=== PATIENT | male | born 1970 | race Caucasian/White ===

== ENCOUNTER 2019-02-26 06:49 | Inpatient (IN) | payer OTHER ==
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
[~2019-02-26 06:49] MED LIST: Acetaminophen TAB* 325 MG PO ONE; Buffered Lidocaine 1% SYRIN* 1 ML/SYRINGE INTRADERM ONE; Dexamethasone TAB* 4 MG PO ONE; DiMENhydriNATE IV* 50 MG/ML VIAL IV PUSH PRN; Famotidine IV* 10 MG/ML 2 ML (20 mg) IV ONE; Gabapentin CAP(*) 400 MG PO ONE; Lactated Ringers 1000 ML Bag* 1,000 ML IV SCH; Naloxone* 0.4 MG/ML 1 ML VIAL IV PRN; Ondansetron ODT TAB* 4 MG PO ONE; PROCHLORPERAZINE INJ 5 MG/ML 2 ML VIAL IV PRN; Tranexamic Acid 1,000 MG in NS 0.9% 50 ML* (outpatient use) IV SCH; celeCOXIB CAP* 100 MG PO ONE; oxyCODONE TAB* 5 MG TAB PO PRN
--- OUTSIDE RECORDS SUMMARY | 2019-02-26 06:52 | XMS REPORT | Continuity of Care Document ---
:1970 External Reference #:[id number] Author Name Tamra Jiménez M.D. (transmitted by agent of provider Giorgi Young) Address [address] [place] [address] Care Team Providers Name Role Phone Tamra Jiménez MD - Adult Care Team Information [employer] Cr[employer] Operator [phone] Reconstructive Orthopaedic Surgery Problems Active Problems Provider Date Localized, primary osteoarthritis Tamra Jiménez M.D. Onset: 05/02/2016 Social History Type Date Description Comments Sex Unknown ETOH Use Rarely consumes alcohol Tobacco Use Start: Unknown Patient is a current smoker, smokes some days Smoking Status Reviewed: 02/18/19 Patient is a current smoker, smokes some days Allergies, Adverse Reactions, Alerts Description No Known Drug Allergies Medications Active Medications SIG Qnty Indications Ordering Provider Date Ra Lidocaine Pain use on knee prn 60units M17.11 Tamra Jiménez, 02/18/2019 Relieving Patches up to 3 times M.D. Maximum Strength daily 4% Patches Oxycodone-Acetaminoph 1 tablet 4 times Unknown en daily 10-325mg Tablets Immunizations Description No Information Available Vital Signs Date Vital Result Comment 02/18/2019 11:41am Height 69 inches 5'9" Weight 142.00 lb Heart Rate 83 /min BP Systolic 122 mmHg BP Diastolic 82 mmHg Body Temperature 97.5 F Pain Level 8 BMI (Body Mass Index) 21.0 kg/m2 02/10/2019 9:14am Height 69 inches 5'9" Weight 146.00 lb Heart Rate 72 /min BP Systolic Sitting 124 mmHg BP Diastolic Sitting 82 mmHg Body Temperature 98.1 F O2 % BldC Oximetry 95 % BMI (Body Mass Index) 21.6 kg/m2 Results Test Acquired Date Facility Test Result H/L Range Note Urinalysis Profile 02/18/2019 [facility] Urine Color Yellow [address] [place] [address] [phone] Urine Appearance Clear Urine Specific [place] 1.028 Normal 1.010-1.030 Urine pH 5.0 Normal 5-9 Urine Urobilinogen Negative Negative Urine Ketones Negative Negative Urine Protein Negative Negative Urine Leukocytes Negative Negative Urine Blood 1+ Abnormal Negative Urine Nitrite Negative Negative Urine Bilirubin Negative Negative Urine Glucose Negative Negative Urine White Blood Cell Absent Absent Urine Red Blood Cell 1+(3-5/hpf) Abnormal Absent Urine Bacteria Absent Absent Urine Squamous Epithelial Cell Present Abnormal Absent CBC Auto 02/18/2019 [facility] White Blood 10.4 10^3/uL Normal 3.5-10.[address] [place] [address] [phone] Red Blood Count 4.54 10^6/uL Normal 4.18-5.48 Hemoglobin 14.6 g/dL Normal 14.0-18.0 Hematocrit 43 % Normal 42-52 Mean Corpuscular Volume 94 fL Normal 80-94 Mean Corpuscular Hemoglobin 32 pg High 27-31 Mean Corpuscular HGB Conc 34 g/dL Normal 31-36 Red Cell Distribution Width 13 % Normal 10-15 Platelet Count 434 10^3/uL Normal 150-450 Mean Platelet Volume 6.9 fL Low 7.4-10.4 Abs Neutrophils 6.3 10^3/uL Normal 1.5-7.7 Abs Lymphocytes 3.2 10^3/uL Normal 1.0-4.8 Abs Monocytes 0.8 10^3/uL Normal 0-0.8 Abs Eosinophils 0.1 10^3/uL Normal 0-0.6 Abs Basophils 0.0 10^3/uL Normal 0-0.2 Abs Nucleated RBC 0.0 10^3/uL Granulocyte % 60.8 % Lymphocyte % 30.8 % Monocyte % 7.3 % Eosinophil % 0.6 % Basophil % 0.5 % Nucleated Red Blood Cells % 0.0 Inr/Protime 02/18/2019 [facility] Inr 0.91 Normal 0.82-1.09 1 [address] [place] [address] [phone] Laboratory test 02/18/2019 [facility] Partial 31.7 Normal 26.0 -38.[address] [place] [address] Time PTT [phone] Comp Metabolic 02/18/2019 [facility] Sodium 135 mmol/L Normal 135-[address] [place], [place] [id number] [phone] Potassium 4.3 mmol/L Normal 3.5-5.0 Chloride 101 mmol/L Normal 101-111 Co2 Carbon Dioxide 25 mmol/L Normal 22-32 Anion Gap 9 mmol/L Normal 2-11 Glucose 105 mg/dL High 70-100 Blood Urea Nitrogen 21 mg/dL Normal 6-24 Creatinine 0.89 mg/dL Normal 0.67-1.17 BUN/Creatinine Ratio 23.6 High 8-20 Calcium 10.2 mg/dL Normal 8.6-10.3 Total Protein 7.1 g/dL Normal 6.4-8.9 Albumin 4.7 g/dL Normal 3.2-5.2 Globulin 2.4 g/dL Normal 2-4 Albumin/Globulin Ratio 2.0 Normal 1-3 Total Bilirubin 0.50 mg/dL Normal 0.2-1.0 Alkaline Phosphatase 78 U/L Normal 34-104 Alt 15 U/L Normal 7-52 Ast 13 U/L Normal 13-39 Egfr Non- 90.5 >60 Egfr 109.5 >60 2 Type & Screen 02/18/2019 [facility] Patient Blood Type O Positive [address] [place] [address] [phone] Antibody Screen NEGATIVE Urine Culture And 02/18/2019 [facility] Urine Culture SEE RESULT [address] [place] [address] [phone] 1 Standard intensity warfarin therapeutic range: 2.0-3.0 High intensity warfarin therapeutic range: 2.5-3.5 2 Because ethnic data is not always readily available, this report includes an eGFR for both -Americans and non- Americans. The National Kidney Disease Education Program (NKDEP) does not endorse the use of the MDRD equation for patients that are not between the ages of 18 and 70, are , have extremes of body size, muscle mass, or nutritional status, or are non- or non-. According to the National Kidney Foundation, irrespective of diagnosis, the stage of the disease is based on the level of kidney function: Stage Description GFR(mL/min/1.73 m(2)) 1 Kidney damage with normal or decreased GFR 90 2 Kidney damage with mild decrease in GFR 60-89 3 Moderate decrease in GFR 30-59 4 Severe decrease in GFR 15-29 5 Kidney failure <15 (or dialysis) 3 SEE RESULT BELOW Name: MITALIANTWAN : [address]: Tamra Jiménez MD Acct: [id number] Unit: [id number] AGE: 48 Location: [facility] Re02/18/19 SEX: M Status: REG REF SPEC: [id number] ABIGAIL: 02/18/191408 [facility] DR: Tamra Jiménez MD REQ: [id number] RECD: 02/18/198405 STATUS: COMP _ SOURCE: URINE SPDESC: ORDERED: Urine Culture QUERIES: Urine Source: Clean Catch Procedure Result Reported Site Urine Culture Final 02/19/19- 1206 ML No Growth (<1,000 CFU/mL) * ML - Main Lab . END OF REPORT DEPARTMENT OF PATHOLOGY, [address] [place] [address] Juni Arnold M.D. Director [facility] # [id number] Procedures Date Code Description Status 02/10/2019 12478 EKG Tracing & Interpretation Completed Medical Devices Description No Information Available Encounters Type Date Location Provider Dx Diagnosis Office Visit 12/10/2018 [facility] Tamra Jiménez, M25.561 Pain in right 9:00a at [facility].D knee M17.31 Unilateral post-traumatic osteoarthritis, right knee Assessments Date Code Description Provider 02/18/2019 M17.11 Unilateral primary osteoarthritis, right knee Tamra Jiménez M.D. 02/18/2019 M25.561 Pain in right knee Tamra Jiménez M.D. 02/10/2019 Z01.818 Encounter for other preprocedural examination Madisyn Goldberg, DO 02/10/2019 M17.11 Unilateral primary osteoarthritis, right knee Madisyn Goldberg, DO 02/10/2019 Z13.220 Encounter for screening for lipoid disorders Madisyn Goldberg, DO 02/10/2019 Z13.1 Encounter for screening for diabetes mellitus Madisyn Goldberg, DO 12/10/2018 M25.561 Pain in right knee Tamra Jiménez M.D. 12/10/2018 M17.31 Unilateral post-traumatic osteoarthritis, right Tamra Jiménez M.D. knee Plan of Treatment Future Appointment(s):02/26/2019 9:30 am - PATY Johnson at [facility] at Snzyvx8703/13/2019 11:30 am - PATY Johnson at [facility] at Hyvydi3802/26/2019 9:30 am - MARISA Dominguez at [facility] at Ltjdzv9402/26/2019 9:30 am - Tamra Jiménez M.D. at [facility] at Zhldgz4902/18/2019 - Tamra Jiménez M.D.M17.11 Unilateral primary osteoarthritis, right kneeNew Medication:Ra Lidocaine Pain Relieving Patches Maximum Strength 4 % - use on knee prn up to 3 times dailyFollow up:Follow up: 2 weeks after bpprtvqB16.561 Pain in right knee Functional Status Description No Information Available Mental Status Description No Information Available Referrals Description No Information Available
[2019-02-26] MEDS ORDERED: Midazolam* 1 MG/ML 5 ML VIAL (5 MG) ONE ×2 (07:52→09:18)
[2019-02-26] MEDS ORDERED: fentaNYL* 50 MCG/ML 2 ML VIAL (100 MCG VIAL) ONE ×3 (07:52→12:38)
[2019-02-26] MEDS ORDERED: KETAMINE HCL* 50 MG/ML 10 ML VIAL ONE (07:52)
[2019-02-26] MEDS ORDERED: celeCOXIB CAP* 100 MG ONE (08:06)
[2019-02-26] MEDS ORDERED: Ondansetron ODT TAB* 4 MG ONE (08:06)
[2019-02-26] MEDS ORDERED: ceFAZolin 2 GM in NS PREMIX(*) 2 GM/100 ML BAG IVPB ONE (08:07)
[2019-02-26] MEDS ORDERED: Famotidine IV* 10 MG/ML 2 ML (20 mg) ONE (08:07)
[2019-02-26] MEDS ORDERED: Acetaminophen TAB* 325 MG ONE (08:07)
[2019-02-26] MEDS ORDERED: Dexamethasone TAB* 4 MG ONE (08:07)
[2019-02-26] MEDS ORDERED: Gabapentin CAP(*) 400 MG PO ONE (08:07)
[2019-02-26] MEDS ORDERED: ROPIVACAINE 5 MG/ML 30 ML BTL (0.5%) ONE ×2 (08:50→10:58)
[2019-02-26] MEDS ORDERED: HYDROmorphone INJ1* 1 MG/ML SYRINGE ONE ×4 (09:48→12:51)
[2019-02-26] MEDS ORDERED: Lidocaine 2% PF * 5 ML VIAL ONE (10:58)
[2019-02-26] MEDS ORDERED: Propofol* 10 MG/ML 20 ML BTL ONE (10:58)
[2019-02-26] MEDS ORDERED: Phenylephrine 40 MCG/ML SYRINGE ONE (10:58)
[2019-02-26] MEDS ORDERED: Phenylephrine 10 MG/ML VIAL* 1 ML VIAL ONE (10:58)
[2019-02-26] MEDS ORDERED: Polyethylene Glycol 3350* 17 GM PACKET PO PRN (11:44)
[2019-02-26] MEDS ORDERED: diPHENhydraMINE IV* 50 MG/ML 1 ml VIAL (BENADRYL) IV PRN (11:44)
[2019-02-26] MEDS ORDERED: Ondansetron INJ* 2 MG/ML VIAL IV PRN (11:44)
[2019-02-26] MEDS ORDERED: Ondansetron ODT TAB* 4 MG PO PRN (11:44)
[2019-02-26] MEDS ORDERED: traZODone TAB* 50 MG TAB PO PRN (11:44)
[2019-02-26] MEDS ORDERED: Magnesium Hydroxide LIQ* 30 ML UDC PO PRN (11:44)
[2019-02-26] MEDS ORDERED: oxyCODONE/Acetamin 5/325 MG* TAB PO PRN (11:44)
[2019-02-26] MEDS ORDERED: diPHENhydraMINE PO* 25 MG PO PRN (11:44)
[2019-02-26] MEDS ORDERED: traMADol TAB* 50 MG PO PRN (11:44)
[2019-02-26] MEDS: fentaNYL* 50 MCG/ML 2 ML VIAL (100 MCG VIAL) IV PRN ×5 (11:52→12:42)
[2019-02-26] MEDS ORDERED: Lactated Ringers 1000 ML Bag* 1,000 ML IV SCH (12:00)
[2019-02-26] MEDS: HYDROmorphone INJ1* 1 MG/ML SYRINGE IV PRN ×5 (12:01→12:31)
[2019-02-26] MEDS ORDERED: oxyCODONE TAB* 5 MG TAB ONE (12:16)
[2019-02-26] MEDS: HYDROmorphone INJ* 0.5 MG/0.5 ML SYRINGE IV PRN ×2 (12:55→13:00)
--- NOTE | 2019-02-26 13:47 | PN ---
Progress Note - Progress Note Date of Service: 02/26/19 Note: resting comfortably in recovery. Pain well controlled. Able to DF/PF, 2+ DP pulse and intact sensation; dressing c/d/i
[2019-02-26] MEDS: Morphine INJ* 2 MG/ML 1 ML SYRINGE (TWO MG - NEW SYRINGE VERSION) IV PRN ×4 (15:09→22:54)
[2019-02-26] MEDS: oxyCODONE/Acetamin 5/325 MG* TAB PO PRN ×2 (15:11→19:29)
[2019-02-26] MEDS: Cyclobenzaprine TAB* 10 MG PO PRN ×2 (15:11→21:03)
[2019-02-26] MEDS: Acetaminophen TAB* 325 MG PO SCH (16:21)
[2019-02-26] MEDS: ceFAZolin 1 GM ADVAN(*) 1 GM in NS 0.9% 50 ML* 50 ML IVPB SCH (17:12)
[2019-02-26] MEDS: oxyCODONE TAB* 5 MG TAB PO PRN ×2 (17:18→22:25)
--- NOTE | 2019-02-26 18:00 | OP ---
Operative Report - Blank - Operative Report Date of Operation: 02/26/19 Note: GISELL JASMINE 1970 Date of Surgery: 02/26/19 Tamra Jiménez MD Warp Hauler: Lewis CUNNINGHAM did help throughout the procedure with preparation of the knee, wound retraction, manipulation of the knee, and wound closure. Anesthesiologist: Juan Adams MD Anesthesia Type: General Preoperative Diagnosis: Right severe degenerative osteoarthritis of the knee Postoperative Diagnosis: As above Procedure Performed: Right Total Knee Arthroplasty Tourniquet time: 47 minutes Complications: None Specimen: Bone and cartilage from the right knee joint sent to pathology. Hardware Used: Cemented Arredondo and Nephew total knee hardware was used - For the femur a size 6 narrow right oxinium legion posterior stabilized femoral component, for the tibia a size 5 right rupert II tibial baseplate, for the insert a size 9mm 5-6 posterior stabilized articular polyethylene insert, and for the patella a size 32 3-peg all poly patella. Brief History/Indication: GISELL JASMINE was known in clinic and had a history of severe right knee pain and swelling. He failed conservative treatment with anti- inflammatories, pain pills, intra-articular injections and physical therapy. He elected to undergo right total knee arthroplasty due to continued pain and decreased quality of life. Radiographs showed severe end stage osteoarthritis of the knee with bone on bone contact. Informed consent was obtained from the patient. He understood the risks of surgery included but were not limited to: bleeding, infection, damage to nearby structures, intraoperative fracture, nerve palsy, failure of the hardware, early loosening, knee stiffness or loss of motion, anesthesia complications, stroke, heart attack, blood clot and . He wished to proceed. Intra-Operative Findings: Intraoperatively the patient was noted to have severe loss of cartilage in all 3 compartments of the knee. Description of the Procedure: GISELL JASMINE was identified in the preanesthesia unit. His right knee was marked as the correct operative side. Informed consent was signed and placed in the chart. The patient was taken to the operating room and placed under anesthesia without complication. A renner catheter was placed. A tourniquet was placed on the right thigh. The right lower extremity was prepped and draped in the usual sterile fashion. Preoperative time-out was made to correctly identify the patient, side and site. Appropriate intraoperative antibiotics were given within one hour of incision. Tourniquet was inflated. A midline incision was made and carried sharply down to the extensor mechanism. A new 10 blade was used to make a standard medial parapatellar arthrotomy. The patella was subluxed laterally. Electrocautery was used to dissect soft tissue off the superomedial tibia to the midsagittal plane. The knee was flexed up. The anterior horn of the lateral meniscus and the ACL were sharply incised. A drill was used to enter the distal femur. The intramedullary distal femoral cutting guide was pinned on the distal femur. The oscillating saw was used to make the distal femoral cut. The external rotation guide was pinned on the distal femur and the distal femur was sized to a size 6. The size 6 multi-cutting jig was pinned on the distal femur. The oscillating saw was used to make the appropriate 4 chamfer cuts. Next the PCL was completely released. The extramedullary tibial cutting guide was pinned on the proximal tibia and the oscillating saw was used to make the proximal tibial cut perpendicular to the mechanical axis of the tibia. The bone was carefully removed. The knee was brought out into full extension. The spacer block was placed and had excellent fit with the knee in full extension. The medial and lateral ligaments were well balanced. The flexion and extension gaps were well balanced. The knee was flexed up. Lamina shoe stainer was placed both medially and laterally. Any remaining meniscus was removed with electrocautery. Curved osteotome was used to remove any posterior osteophytes. The tibial tray and drop rory were placed and confirmed a satisfactory tibial cut. The size 6 right femoral trial was impacted onto the distal femur. This trial had excellent fit and stability. The box for the posterior stabilized implant was prepared using a box cut osteotome and a reamer. Next a tibial tray trial and 9 mm insert trial was placed. The knee was taken through a range of motion and had full extension to 130 degrees of flexion. Patellofemoral tracking was satisfactory. The patella was inverted and sized to a size 32. Three peg holes were drilled through the size 32 drill guide. The trial patella was placed and the knee was taken through a range of motion. There was satisfactory patellofemoral tracking. All trials were removed. The tibia was subluxed anteriorly and sized to a size 5. The proximal tibial was prepared with a size 5 keel punch. All bony cut surfaces were irrigated with sterile saline and dried. Final implants were cemented into place starting with the tibia, followed by the femur, and last the patella. A 9 mm insert trial was placed and the knee was brought into full extension. Tourniquet was turned down and the knee was copiously irrigated with sterile saline. Electrocautery was used to obtain meticulous hemostasis. Once the cement had fully cured, the insert trial was removed. Any excess cement was removed from around the hardware and capsule. Final insert chosen was a 9 mm posterior stabilized Rupert II articular insert size 5-6. Stability of the insert was checked and noted to be stable. The extensor mechanism was closed using number 1 vicryls. The rest of the incision was closed in a layered fashion using 0 and 2-0 vicryls. The skin was closed using 3-0 nylon suture. Sterile xeroform, 4x4s and webril were used to cover the incision. Valentin wrap and cold pack were used to cover the dressings. The patients anesthesia was reversed without difficulty. He was taken to the PACU in stable condition. Intended weight-bearing will be as tolerated.
[2019-02-26] MEDS: Magnesium Hydroxide LIQ* 30 ML UDC PO SCH (20:55)
[2019-02-26] MEDS: Morphine TAB Extended Release (*) 15 MG TAB.ER PO SCH (20:55)
[2019-02-26] MEDS: Docusate CAP* 100 MG PO SCH (20:55)
[2019-02-26] MEDS: Ketorolac INJ* 30 MG/ML 1 ML VIAL IV PRN (22:22)
[2019-02-27] MEDS: Acetaminophen TAB* 325 MG PO SCH ×3 (00:33→15:56)
[2019-02-27] MEDS: oxyCODONE/Acetamin 5/325 MG* TAB PO PRN ×4 (00:34→15:59)
[2019-02-27] MEDS: ceFAZolin 1 GM ADVAN(*) 1 GM in NS 0.9% 50 ML* 50 ML IVPB SCH ×2 (01:05→09:42)
[2019-02-27] MEDS: oxyCODONE TAB* 5 MG TAB PO PRN ×3 (02:24→13:52)
[2019-02-27] MEDS: Morphine INJ* 2 MG/ML 1 ML SYRINGE (TWO MG - NEW SYRINGE VERSION) IV PRN ×6 (02:25→14:23)
[2019-02-27] MEDS: Ketorolac INJ* 30 MG/ML 1 ML VIAL IV PRN (05:10)
[2019-02-27 06:56] LABS: Hematocrit 30 % (42-52); Hemoglobin 10.2 g/dL (14.0-18.0); Mean Platelet Volume 6.5 fL (7.4-10.4); Platelet Count 268 10^3/uL (150-450)
[2019-02-27 07:23] LABS: BUN/Creatinine Ratio 16.5 (8-20); Calcium 8.4 mg/dL (8.6-10.3); EGFR African American 125.6 (>60); EGFR Non-African American 103.8 (>60); Potassium 4.6 mmol/L (3.5-5.0)
[2019-02-27] MEDS: Docusate CAP* 100 MG PO SCH (07:59)
[2019-02-27] MEDS: Morphine TAB Extended Release (*) 15 MG TAB.ER PO SCH (07:59)
[2019-02-27] MEDS: Magnesium Hydroxide LIQ* 30 ML UDC PO SCH (08:00)
[2019-02-27] MEDS ORDERED: Apixaban* 2.5 MG TAB PO SCH (09:00)
[2019-02-27] MEDS ORDERED: Vitamin THERAPEUTIC TAB PO SCH (09:00)
[2019-02-27 11:09] VITALS: BP 114/68
--- NOTE | 2019-02-27 16:45 | DS ---
Orthopedic Discharge Summary - Discharge Summary Date of Admission:02/26/19 Date of Discharge: 02/27/19 Date of Surgery: 02/26/19 Attending Orthopedic Provider: Tamra Jiménez MD Pre-operative Diagnosis: Severe right knee osteoarthritis Operative Procedure: Right total knee replacement Disposition of Patient: Home Condition of Patient: Stable History: GISELL JASMINE is a 48 year old M with years of increasingly severe Right knee pain. Patient has failed conservative management and has elected to undergo a Right total knee replacement Hospital Course: GISELL was admitted to [facility] on 02/26/19. Patient underwent a Right total knee replacement without complication followed by a brief recovery in PACU and transfer to the Short Stay Surgical Unit in stable condition. Our physical therapy and occupational therapy also participated in this patients care. Post-op day 1: patient was alert and in no acute distress. Dressing was clean, dry and intact. Operative extremity dorsiflexion and plantarflexion intact, sensation intact to light touch distally , DP2+. Dressing was changed, incision was clean, dry and intact. Patient was deemed to be medically and orthopedically stable for discharge. Physical therapy goals were met. Patient was discharged to home in a stable condition. Home Medications Medication Instructions Recorded Confirmed Type oxyCODONE/Acetamin 10/325(NF) 1 tab PO QID 02/18/19 02/26/19 History [Percocet 10/325 (NF)] Apixaban* [Eliquis*] 2.5 mg PO BID #0 tab 02/27/19 Rx Cyclobenzaprine TAB* [Flexeril 10 10 mg PO Q6H PRN tab 02/27/19 Rx MG TAB*] Morphine TAB Extended Rel(*) [Ms 30 mg PO BID tab.er 02/27/19 Rx Contin(*)] Discharge Instructions following Orthopedic Surgery: Activity: * Weight Bearing as tolerated * Continue physical therapy and occupational therapy exercises as shown Wound care: * OK to shower on post-op day 3, no bathing, swimming, or submerging wound. * Use gentle soap, pat dry. Cover with gauze, TENNILLE wrap or tape. * Visiting home nurse to do wound checks. Call Orthopedic office for: * Increased drainage * Redness * Increased pain * Fever Go to ER with shortness of breath or chest pain. Diet: * Regular diet * Increase fluids and fiber to prevent constipation. * Continue to use stool softeners, call office if no bowel motion within 48 hours. Medications See Home Medication List in your packet for medications that you should take after discharge. DVT Prophylaxis: Eliquis Dosin.5 mg, 1 tab every 12 hours x 30 days Pain Control: MS Contin Dosin mg 1 tab by mouth every 12 hours as needed for pain. Maximum of 10 tabs per day. Celebrex Dosin mg twice a day Antibiotics are required prior to any dental work. FOLLOW UP: Follow up with Dr. Jiménez Within 10-14 days, call for appointment Please call our office with any questions or concerns ([phone])
--- NOTE | 2019-02-27 16:45 | PN ---
Progress Note - Progress Note Date of Service: 02/27/19 SOAP: Subjective: Pt seen and examined at bedside. Complains of right knee pain. Denies CP, SOB, F /C. Vital Signs: Temp Pulse Resp BP Pulse Ox 98.2 F 60 18 114/68 98 02/27/19 11:09 02/27/19 11:09 02/27/19 16:02 02/27/19 11:09 02/27/19 11:09 Laboratory Last Values Hgb 10.2 g/dL (14.0-18.0) L 02/27/19 06:50 Hct 30 % (42-52) L 02/27/19 06:50 Plt Count 268 10^3/uL (150-450) 02/27/19 06:50 MPV 6.5 fL (7.4-10.4) L 02/27/19 06:50 Sodium 138 mmol/L (135-145) 02/27/19 06:50 Potassium 4.6 mmol/L (3.5-5.0) 02/27/19 06:50 Chloride 106 mmol/L (101-111) 02/27/19 06:50 Carbon Dioxide 29 mmol/L (22-32) 02/27/19 06:50 Anion Gap 3 mmol/L (2-11) 02/27/19 06:50 BUN 13 mg/dL (6-24) 02/27/19 06:50 Creatinine 0.79 mg/dL (0.67-1.17) 02/27/19 06:50 Est GFR ( Amer) 125.6 (>60) 02/27/19 06:50 Est GFR (Non-Af Amer) 103.8 (>60) 02/27/19 06:50 BUN/Creatinine Ratio 16.5 (8-20) 02/27/19 06:50 Glucose 110 mg/dL (70-100) H 02/27/19 06:50 Calcium 8.4 mg/dL (8.6-10.3) L 02/27/19 06:50 Objective: A&O x3, NAD Dressing changed, Incision C/D/I, Calves soft and nontender, No edema, NVI distally. Assessment: 48 yo male s/p right TKA POD #1 Plan: OOB, PT/OT WBAT Pain control DVT prophylaxis - Eliquis 2.5.mg bid D/C home today
[2019-02-27] MEDS ORDERED: Morphine TAB Extended Release (*) 30 MG TAB.ER PO SCH (21:00)
[2019-02-28] MEDS ORDERED: Bisacodyl SUPP* 10 MG SUPP PR PRN (11:44)
== END 2019-02-27 16:40 | disposition home or self-care (01) | DRG 302 ==
LOC: AA 06:49 → SSU 14:24 → EDSTATUS 03-06 12:45
PROVIDERS: ADMIT Orthopaedic Surgery Adult Reconstructive Orthopaedic Surgery; ATTEND Orthopaedic Surgery Adult Reconstructive Orthopaedic Surgery
PROC: 0SRC069 Replacement of Right Knee Joint with Oxidized Zirconium on Polyethylene Synthetic Substitute, Cemented, Open Approach (ICD-10-PCS; principal; 2019-02-26 09:00)
DX: M17.11 Unilateral primary osteoarthritis, right knee (principal); G89.29 Other chronic pain; F17.210 Nicotine dependence, cigarettes, uncomplicated; M25.461 Effusion, right knee; M25.761 Osteophyte, right knee
CPT/HCPCS: 36415; 80048; 85014; 85018; 85049; 87070; 87073; 87102; 87205; 87640; 87641; 88305; 88311; A9270-GY; C1776; J0690; J1170; J1885; J2250; J2270; J2704; J2795; J3010; J8540